=== PATIENT | female | born 1980 | race Caucasian/White ===

== ENCOUNTER 2025-03-13 10:58 | Outpatient (CLI) | payer OTHER | END 2025-03-13 11:00 | disposition home or self-care (01) | LOC: SONOGRAMA 10:58 | PROVIDERS: ATTEND Pathology Anatomic Pathology & Clinical Pathology | DX: D34 Benign neoplasm of thyroid gland (principal); E06.3 Autoimmune thyroiditis; E04.1 Nontoxic single thyroid nodule ==